=== PATIENT | female | born 2000 | race Hispanic/Latino ===

== ENCOUNTER 2024-04-21 15:04 | Observation (INO) | payer MEDICAID ==
[~2024-04-21] VITALS: Ht 160 cm; Wt 76.2 kg
[2024-04-21 15:32] VITALS: BP 139/81; PULSE 93; RESP 20; O2SAT 98
[2024-04-21 16:01] LABS: APPEARANCE,URINE CLEAR (CLEAR); BILIRUBIN,URINE NEGATIVE (NEGATIVE); COLOR,URINE LIGHT-YELLOW (YELLOW); GLUCOSE, URINE (UA) 30 mg/dL (NEGATIVE); KETONES,URINE NEGATIVE (NEGATIVE); LEUKOCYTE ESTERASE ,URINE 75 Leu/uL (NEGATIVE); NITRATE,URINE NEGATIVE (NEGATIVE); OCCULT BLOOD,URINE NEGATIVE (NEGATIVE); PROTEIN,URINE NEGATIVE (NEGATIVE); UROBILINOGEN,URINE 0.2 mg/dL (0.2-1.0)
[2024-04-21 16:02] LABS: ADD UA MICROSCOPIC YES
[2024-04-21 16:03] LABS: RBC,URINE 0-1 /HPF (0-1); SQUAMOUS EPITHELIAL CELL,UR RARE /HPF (0-2); WBC,URINE 0-1 /HPF (0-1)
[2024-04-21 17:05] LABS: INFLUENZA TYPE A Negative For Type A (NEGATIVE); INFLUENZA TYPE B Negative For Type B (NEGATIVE)
[2024-04-21 17:06] LABS: SARS-CoV-2, RNA, NAAT NEGATIVE SARS CoV-2 (NEGATIVE)
== END 2024-04-21 17:33 | disposition home or self-care (01) ==
LOC: EDH 15:04 → LDH 15:05
PROVIDERS: ADMIT Obstetrics & Gynecology; ATTEND Obstetrics & Gynecology
DX: O99.891 Other specified diseases and conditions complicating pregnancy (principal); M54.50 Low back pain, unspecified; Z20.822 Contact with and (suspected) exposure to COVID-19; O26.893 Other specified pregnancy related conditions, third trimester; R10.9 Unspecified abdominal pain; R51.9 Headache, unspecified; R06.02 Shortness of breath; R00.2 Palpitations; Z3A.27 27 weeks gestation of pregnancy
CPT/HCPCS: 87086; 87804 ×2; 81001; 87635; G0378 ×2

== ENCOUNTER 2024-05-19 17:55 | Observation (INO) | payer MEDICAID ==
[~2024-05-19] VITALS: Ht 160 cm; Wt 78.2 kg
[2024-05-19 17:56] VITALS: BP 136/76; PULSE 90; RESP 18; TEMP 98.1
[2024-05-19 18:25] LABS: APPEARANCE,URINE CLEAR (CLEAR); BILIRUBIN,URINE NEGATIVE (NEGATIVE); COLOR,URINE LIGHT-YELLOW (YELLOW); GLUCOSE, URINE (UA) NEGATIVE (NEGATIVE); KETONES,URINE NEGATIVE (NEGATIVE); LEUKOCYTE ESTERASE ,URINE 75 Leu/uL (NEGATIVE); NITRATE,URINE NEGATIVE (NEGATIVE); OCCULT BLOOD,URINE NEGATIVE (NEGATIVE); PH,URINE 6.5 (5.0-8.0); PROTEIN,URINE NEGATIVE (NEGATIVE); UROBILINOGEN,URINE 0.2 mg/dL (0.2-1.0)
[2024-05-19 18:26] LABS: ADD UA MICROSCOPIC YES
[2024-05-19 18:28] LABS: BACTERIA,URINE RARE /HPF (None Seen); MUCUS,URINE RARE LPF (None Seen); RBC,URINE 0-1 /HPF (0-1); SQUAMOUS EPITHELIAL CELL,UR FEW /HPF (0-2); WBC,URINE 0-1 /HPF (0-1)
== END 2024-05-19 19:06 | disposition home or self-care (01) ==
LOC: EDH 17:55 → LDH 17:56
PROVIDERS: ADMIT Obstetrics & Gynecology; ATTEND Obstetrics & Gynecology
DX: O34.63 Maternal care for abnormality of vagina, third trimester (principal); N89.8 Other specified noninflammatory disorders of vagina; Z3A.31 31 weeks gestation of pregnancy; Z79.899 Other long term (current) drug therapy
CPT/HCPCS: 87086; 81001; 76815; 82120; G0379; G0378

== ENCOUNTER 2024-06-21 15:56 | Observation (INO) | payer MEDICAID ==
[~2024-06-21] VITALS: Ht 162.6 cm; Wt 76.2 kg
[2024-06-21 15:58] VITALS: BP 97/65; PULSE 101; RESP 16; TEMP 98.2
[2024-06-21 16:34] LABS: ADD UA MICROSCOPIC YES; APPEARANCE,URINE CLOUDY (CLEAR); BILIRUBIN,URINE NEGATIVE (NEGATIVE); COLOR,URINE YELLOW (YELLOW); GLUCOSE, URINE (UA) NEGATIVE (NEGATIVE); KETONES,URINE NEGATIVE (NEGATIVE); LEUKOCYTE ESTERASE ,URINE 500 Leu/uL (NEGATIVE); NITRATE,URINE NEGATIVE (NEGATIVE); OCCULT BLOOD,URINE SMALL (NEGATIVE); PROTEIN,URINE 10 mg/dL (NEGATIVE); UROBILINOGEN,URINE 0.2 mg/dL (0.2-1.0)
[2024-06-21 16:37] LABS: BACTERIA,URINE RARE /HPF (None Seen); MUCUS,URINE RARE LPF (None Seen); SQUAMOUS EPITHELIAL CELL,UR MOD /HPF (0-2)
[2024-06-21] MEDS ORDERED: LACTATED RINGERS 1000ML 1,000 ML IV ONE (17:08)
[2024-06-21] MEDS: LACTATED RINGERS 1000ML IV SCH (17:43)
[2024-07-09] MEDS ORDERED: PREN1TAB80 PO (19:37)
[2024-07-09] MEDS ORDERED: FAMO40TA7 PO (19:37)
[2024-07-09] MEDS ORDERED: DOCU-116 PO (19:37)
[2024-07-09] MEDS ORDERED: ACET-66 PO (19:37)
== END 2024-06-21 18:40 | disposition home or self-care (01) ==
LOC: EDH 15:56 → LDH 15:57
PROVIDERS: ADMIT Obstetrics & Gynecology; ATTEND Obstetrics & Gynecology
DX: O26.893 Other specified pregnancy related conditions, third trimester (principal); R10.9 Unspecified abdominal pain; Z3A.36 36 weeks gestation of pregnancy
CPT/HCPCS: 59025; 96360; 87086; 81001; G0378 ×2; G0379; J7120 ×2

== ENCOUNTER 2024-07-04 22:43 | Observation (INO) | payer MEDICAID ==
[~2024-07-04] VITALS: Ht 160 cm; Wt 63.5 kg
[2024-07-04 22:45] VITALS: BP 126/77; PULSE 110; RESP 20; TEMP 98.4
--- NOTE | 2024-07-04 22:48 | NUR ---
REPORT TO [facility]
[2024-07-04 23:42] LABS: APPEARANCE,URINE CLEAR (CLEAR); BILIRUBIN,URINE NEGATIVE (NEGATIVE); COLOR,URINE LIGHT-YELLOW (YELLOW); GLUCOSE, URINE (UA) NEGATIVE (NEGATIVE); KETONES,URINE NEGATIVE (NEGATIVE); LEUKOCYTE ESTERASE ,URINE NEGATIVE Leu/uL (NEGATIVE); NITRATE,URINE NEGATIVE (NEGATIVE); OCCULT BLOOD,URINE NEGATIVE (NEGATIVE); PH,URINE 5.5 (5.0-8.0); PROTEIN,URINE 10 mg/dL (NEGATIVE); UROBILINOGEN,URINE 0.2 mg/dL (0.2-1.0)
[2024-07-04 23:43] LABS: ADD UA MICROSCOPIC YES
[2024-07-04 23:44] LABS: BACTERIA,URINE RARE /HPF (None Seen); MUCUS,URINE RARE LPF (None Seen); SQUAMOUS EPITHELIAL CELL,UR RARE /HPF (0-2); WBC,URINE 0-1 /HPF (0-1)
[2024-07-05] MEDS ORDERED: LACTATED RINGERS 1000ML IV SCH (00:20)
[2024-07-09] MEDS ORDERED: FAMO40TA7 PO (19:37)
[2024-07-09] MEDS ORDERED: PREN1TAB80 PO (19:37)
[2024-07-09] MEDS ORDERED: ACET-66 PO (19:37)
[2024-07-09] MEDS ORDERED: DOCU-116 PO (19:37)
== END 2024-07-05 00:52 | disposition home or self-care (01) ==
LOC: EDH 22:43 → LDH 22:51
PROVIDERS: ADMIT Obstetrics & Gynecology; ATTEND Obstetrics & Gynecology
DX: O62.9 Abnormality of forces of labor, unspecified (principal); Z3A.38 38 weeks gestation of pregnancy
CPT/HCPCS: 59025; 81001; G0378 ×2; G0379